=== PATIENT | male | born 1985 | race Caucasian/White ===

== ENCOUNTER → 2022-10-07 | Outpatient (REF) | payer BC ==
[2022-10-07 14:04] LABS: SEMEN APPEARANCE OPAQUE (OPAQUE); SEMEN VISCOSITY LIQUID (LIQUID); SEMEN VOLUME 1.7 ml (2.0-5.0)
[2022-10-07 14:05] LABS: SPERM CONCENTRATION 27.1 M/ml (>=15.0); WBC CONCENTRATION >1 M/ml (<=1 M/ml)
== END ==
LOC: M LAB REF 13:48
PROVIDERS: ATTEND Obstetrics & Gynecology Obstetrics
DX: Z31.41 Encounter for fertility testing (principal)